=== PATIENT | male | born 1945 | race Asian ===

== ENCOUNTER → 2016-10-01 | Outpatient (CLI) | payer MEDICARE, MEDICAID ==
[~2016-10-01] MED LIST: AMO500 PO; ASPI-664 PO; ERYT1OIN6 LEFT EYE; GLIP5TAB13 PO; LEVO100T82 PO; metformin; zocor
[2016-10-01 11:45] LABS: BASOPHILS % 0.4 % (0.0-2.0); EOSINOPHILS # 0.2 10^3/ul (0.0-0.5); EOSINOPHILS % 2.2 % (0.0-7.0); HEMATOCRIT 35.6 % (42.0-52.0); HEMOGLOBIN 11.4 g/dl (14.0-18.0); LYMPHOCYTES # 2.1 10^3/ul (0.8-2.9); LYMPHOCYTES % 29.7 % (15.0-51.0); MEAN CORPUSCULAR HEMOGLOBIN 27.3 pg (29.0-33.0); MEAN CORPUSCULAR HGB CONC 32.1 g/dl (32.0-37.0); MEAN CORPUSCULAR VOLUME 84.9 fl (82.0-101.0); MEAN PLATELET VOLUME 8.9 fl (7.4-10.4); MONOCYTE # 0.6 10^3/ul (0.3-0.9); MONOCYTES % 7.9 % (0.0-11.0); NEUTROPHIL # 4.2 10^3/ul (1.6-7.5); NEUTROPHILS % 59.8 % (39.0-77.0); PLATELET COUNT 235 10^3/UL (140-440); RED BLOOD COUNT 4.19 10^6/ul (4.70-6.10); RED CELL DISTRIBUTION WIDTH 15.4 % (11.5-14.5)
[2016-10-01 11:48] LABS: CONDITION 1; LH ANALYZER COMMENTS 1
[2016-10-01 12:06] LABS: ALBUMIN 4.3 g/dl (3.3-4.9)
[2016-10-01 12:07] LABS: POTASSIUM 4.5 mmol/L (3.5-5.1)
[2016-10-01 12:09] LABS: ALBUMIN/GLOBULIN RATIO 1.22; BILIRUBIN,INDIRECT 0.2 mg/dl (0-1.1); BILIRUBIN,TOTAL 0.2 mg/dl (0.2-1.3); CREATININE 1.49 mg/dl (0.61-1.24); TOTAL PROTEIN 7.8 g/dl (6.1-8.1)
[2016-10-01 12:10] LABS: CALCIUM 9.4 mg/dl (8.4-10.2); CHOL/HDL RATIO 3.1 RATIO
[2016-10-01 13:20] LABS: INR 0.94; PROTIME 12.6 Sec (12.2-14.2)
[2016-10-01 13:21] LABS: PARTIAL THROMBOPLASTIN TIME 31.4 Sec (25.0-35.0)
--- NOTE | 2016-10-02 15:55 | RADRPT ---
Vent Rate: 66 bpm RR Interval: 0 msec SC Interval: 138 msec QRS Duration: 82 msec QT Interval: 362 msec QTC Interval: 379 msec P-R-T [place]: 61 - 42 - 38 degrees Normal sinus rhythm Normal ECG Electronically Signed By: Jesus Evans [id number]
== END | disposition home or self-care (01) ==
LOC: LAB 10:44
PROVIDERS: ATTEND Internal Medicine
DX: Z01.818 Encounter for other preprocedural examination (principal); I10 Essential (primary) hypertension; E11.9 Type 2 diabetes mellitus without complications; I65.21 Occlusion and stenosis of right carotid artery
CPT/HCPCS: 80053; 80061; 85025; 85610; 85730; 93005

== ENCOUNTER → 2017-12-10 | Outpatient (CLI) | END | disposition home or self-care (01) ==